=== PATIENT | female | born 1955 | race Two or more races ===

== ENCOUNTER 2017-06-07 16:14 | Inpatient (IN) | payer MEDICAID ==
[~2017-06-07] VITALS: Ht 162.6 cm; Wt 95.7 kg
--- NOTE | 2017-06-07 16:35 | Emergency Room Report ---
History of Present Illness General Chief Complaint: Chest Pain Source: Patient Present Illness [facility] Patient present with complaints of midsternal chest pain Onset approximately 2 hours prior to arrival Patient takes medications for diabetes, hypertension, and anticoagulations for atrial fibrillation Pain is 5/10 heavy midsternal Patient has not really any alleviating or aggravating pathology denies any vomiting or diarrhea denies any fevers or chills Allergies: Coded Allergies: No Known Allergies (Unverified , 06/07/17) Patient History Past Medical History: see triage record Pertinent Family History: none Now: No Reviewed Nursing Documentation: PMH: Agreed, PSxH: Agreed Nursing Documentation-PMH Hx Cardiac Problems: Yes Hx Hypertension: Yes Hx Pacemaker: No Hx Asthma: No Hx COPD: No Hx Diabetes: Yes Hx Cancer: No Hx Gastrointestinal Problems: No Hx Dialysis: No History Of Psychiatric Problem: No Hx Neurological Problems: No Hx Seizures: No Review of Systems All Other Systems: negative except mentioned in HPI Physical Exam Vital Signs Date Time Temp Pulse Resp B/P Pulse Ox O2 Delivery O2 Flow Rate FiO2 06/07/17 16:05 98.1 78 16 116/68 98 Room Air Sp02 EP Interpretation: reviewed, normal General Appearance: mild distress - Patient appears weak Head: normocephalic, atraumatic Eyes: bilateral eye EOMI, bilateral eye PERRL ENT: hearing grossly normal, normal pharynx, TMs + canals normal, uvula midline Neck: full range of motion, supple, no meningismus, no bony tend Respiratory: lungs clear, normal breath sounds, no rhonchi, no respiratory distress, no retraction, no accessory muscle use Cardiovascular #1: normal peripheral pulses, regular rate, rhythm, no edema, no gallop, no JVD, no murmur Gastrointestinal: normal bowel sounds, non tender, soft, no mass, no organomegaly, non-distended, no guarding, no hernia, no pulsatile mass, no rebound Genitourinary: no CVA tenderness Musculoskeletal: normal inspection Neurologic: oriented x3, responsive, waterside worker III-XII nml as tested, motor strength/ tone normal, sensory intact Psychiatric: mood/affect normal Skin: normal color, no rash, warm/dry, palpation normal Lymphatic: normal inspection, no adenopathy Medical Decision Making Diagnostic Impression: Primary Impression: ACS (acute coronary syndrome) ER Course Patient is a fairly complex patient with multiple differential to consideration including but not limited to cardiac cardiopulmonary and vascular emergencies Given the patient's history exam and presentation at this time no signs of any acute ST elevation MO However there is concern regarding ACS patient was given aspirin and nitroglycerin in route Require further medication here and admitted for further inpatient care Labs Test 06/07/17 16:20 White Blood Count 9.4 K/UL (4.8-10.8) Red Blood Count 4.30 M/UL (4.20-5.40) Hemoglobin 14.6 G/DL (12.0-16.0) Hematocrit 39.8 % (37.0-47.0) Mean Corpuscular Volume 93 FL (80-99) Mean Corpuscular Hemoglobin 34.1 PG (27.0-31.0) Mean Corpuscular Hemoglobin Concent 36.8 G/DL (32.0-36.0) Red Cell Distribution Width 11.3 % (11.6-14.8) Platelet Count 246 K/UL (150-450) Mean Platelet Volume 8.2 FL (6.5-10.1) Neutrophils (%) (Auto) 59.1 % (45.0-75.0) Lymphocytes (%) (Auto) 32.3 % (20.0-45.0) Monocytes (%) (Auto) 6.5 % (1.0-10.0) Eosinophils (%) (Auto) 0.9 % (0.0-3.0) Basophils (%) (Auto) 1.2 % (0.0-2.0) Prothrombin Time 22.4 SEC (9.30-11.50) Prothromb Time International Ratio 2.1 (0.9-1.1) Activated Partial Thromboplast Time 38 SEC (23-33) Sodium Level 144 mEQ/L (135-145) Potassium Level 3.8 mEQ/L (3.4-4.9) Chloride Level 102 mEQ/L (98-107) Carbon Dioxide Level 27 mEQ/L (20-30) Anion Gap 15 (5-15) Blood Urea Nitrogen 13 mg/dL (7-23) Creatinine 0.9 mg/dL (0.5-0.9) Estimat Glomerular Filtration Rate > 60 mL/min (>60) Glucose Level 117 mg/dL (74-106) Calcium Level 9.6 mg/dL (8.6-10.2) Total Bilirubin 0.2 mg/dL (0.0-1.2) Aspartate Amino Transf (AST/SGOT) 18 U/L (5-40) Alanine Aminotransferase (ALT/SGPT) 14 U/L (3-33) Alkaline Phosphatase 87 U/L (35-104) Total Creatine Kinase 71 U/L (26-140) Creatine Kinase MB 1.9 ng/mL (< 3.8) Creatine Kinase MB Relative Index 2.6 Troponin I < 0.30 ng/mL (<=0.30) Total Protein 7.4 g/dL (6.6-8.7) Albumin 4.6 g/dL (3.5-5.2) Globulin 2.8 g/dL Albumin/Globulin Ratio 1.6 (1.0-2.7) EKG Diagnostic Results Rate: normal Rhythm: other - atrial fibrillation ST Segments: no acute changes Rhythm Strip Diag. Results EP Interpretation: yes Rate: 65 Rhythm: no PVC's, no ectopy, other - afib Chest X-Ray Diagnostic Results Chest X-Ray Diagnostic Results : Chest X-Ray Ordered: Yes # of Views/Limited/Complete: 1 View Indication: Chest Pain EP Interpretation: Yes Interpretation: no consolidation, no effusion, no pneumothorax Impression: No acute disease Interpreting ER Provider: DO Esteban Gutierrez Vital Signs Date Time Temp Pulse Resp B/P Pulse Ox O2 Delivery O2 Flow Rate FiO2 06/07/17 16:05 98.1 78 16 116/68 98 Room Air Status: improved Disposition: ADMITTED INPATIENT Condition: Serious UZMA MALONE D.O. Jun 07, 2017 16:35
[2017-06-07] MEDS ORDERED: Morphine Sulfate 4mg/ml Inj IVP ONE (16:45)
[2017-06-07 16:47] LABS: BASOPHILS % (AUTO) 1.2 % (0.0-2.0); EOSINOPHILS % (AUTO) 0.9 % (0.0-3.0); LYMPHOCYTES % (AUTO) 32.3 % (20.0-45.0); MEAN CORPUSCULAR HEMOGLOBIN 34.1 PG (27.0-31.0); MEAN CORPUSCULAR HGB CONC 36.8 G/DL (32.0-36.0); MEAN CORPUSCULAR VOLUME 93 FL (80-99); MEAN PLATELET VOLUME 8.2 FL (6.5-10.1); MONOCYTES % (AUTO) 6.5 % (1.0-10.0); NEUTROPHILS % (AUTO) 59.1 % (45.0-75.0); PLATELET COUNT 246 K/UL (150-450); RED CELL DISTRIBUTION WIDTH 11.3 % (11.6-14.8); WHITE BLOOD COUNT 9.4 K/UL (4.8-10.8)
[2017-06-07 17:00] VITALS: BP 105/63
[2017-06-07 17:10] LABS: TROPONIN I < 0.30 ng/mL (<=0.30)
[2017-06-07 17:22] LABS: ALANINE AMINOTRANSFERASE 14 U/L (3-33); ALBUMIN/GLOBULIN RATIO 1.6 (1.0-2.7); ANION GAP 15 (5-15); ASPARTATE AMINO TRANSFERASE 18 U/L (5-40); CALCIUM 9.6 mg/dL (8.6-10.2); CARBON DIOXIDE 27 mEQ/L (20-30); CHLORIDE 102 mEQ/L (98-107); CREATININE 0.9 mg/dL (0.5-0.9); GLOMERULAR FILTRATION RATE > 60 mL/min (>60); HEMOLYSIS 3; POTASSIUM 3.8 mEQ/L (3.4-4.9); SODIUM 144 mEQ/L (135-145); TOTAL PROTEIN 7.4 g/dL (6.6-8.7)
[2017-06-07 17:26] LABS: INR 2.1 (0.9-1.1); PROTHROMBIN TIME 22.4 SEC (9.30-11.50)
[2017-06-07 17:34] LABS: CKMB 1.9 ng/mL (< 3.8)
[2017-06-07 18:32] VITALS: BP 124/69
[2017-06-07] MEDS ORDERED: METFORMIN HCL1000 M1 ORAL (18:38)
[2017-06-07] MEDS ORDERED: LASIX20 M1 ORAL (18:38)
[2017-06-07] MEDS ORDERED: BENAZEPRIL HCL10 MG ORAL (18:38)
[2017-06-07] MEDS ORDERED: COUMADIN5 MG ORAL (18:38)
[2017-06-07] MEDS ORDERED: FAMOTIDINE20 MG ORAL (18:38)
[2017-06-07] MEDS ORDERED: METOPROLOL SUCC25 MG ORAL (18:38)
[2017-06-07 20:20] VITALS: BP 108/75
--- NOTE | 2017-06-07 20:36 | Cardiology Progress Note ---
Assessment/Plan Assessment/Plan The patient is seen and examined, full consult note will be dictated. Objective Last 24 Hour Vital Signs Date Time Temp Pulse Resp B/P Pulse Ox O2 Delivery O2 Flow Rate FiO2 06/07/17 20:20 97.0 60 18 108/75 98 Room Air 06/07/17 20:08 98.1 54 12 124/69 98 Room Air 06/07/17 18:32 98.1 54 12 124/69 98 Room Air 06/07/17 17:59 98.1 06/07/17 17:00 98.1 57 12 105/63 98 Room Air 06/07/17 17:00 57 12 Room Air 06/07/17 16:05 98.1 78 16 116/68 98 Room Air Laboratory Tests Test 06/07/17 16:20 White Blood Count 9.4 K/UL (4.8-10.8) Red Blood Count 4.30 M/UL (4.20-5.40) Hemoglobin 14.6 G/DL (12.0-16.0) Hematocrit 39.8 % (37.0-47.0) Mean Corpuscular Volume 93 FL (80-99) Mean Corpuscular Hemoglobin 34.1 PG (27.0-31.0) H Mean Corpuscular Hemoglobin Concent 36.8 G/DL (32.0-36.0) H Red Cell Distribution Width 11.3 % (11.6-14.8) L Platelet Count 246 K/UL (150-450) Mean Platelet Volume 8.2 FL (6.5-10.1) Neutrophils (%) (Auto) 59.1 % (45.0-75.0) Lymphocytes (%) (Auto) 32.3 % (20.0-45.0) Monocytes (%) (Auto) 6.5 % (1.0-10.0) Eosinophils (%) (Auto) 0.9 % (0.0-3.0) Basophils (%) (Auto) 1.2 % (0.0-2.0) Prothrombin Time 22.4 SEC (9.30-11.50) H Prothromb Time International Ratio 2.1 (0.9-1.1) H Activated Partial Thromboplast Time 38 SEC (23-33) H Sodium Level 144 mEQ/L (135-145) Potassium Level 3.8 mEQ/L (3.4-4.9) Chloride Level 102 mEQ/L (98-107) Carbon Dioxide Level 27 mEQ/L (20-30) Anion Gap 15 (5-15) Blood Urea Nitrogen 13 mg/dL (7-23) Creatinine 0.9 mg/dL (0.5-0.9) Estimat Glomerular Filtration Rate > 60 mL/min (>60) Glucose Level 117 mg/dL (74-106) H Calcium Level 9.6 mg/dL (8.6-10.2) Total Bilirubin 0.2 mg/dL (0.0-1.2) Aspartate Amino Transf (AST/SGOT) 18 U/L (5-40) Alanine Aminotransferase (ALT/SGPT) 14 U/L (3-33) Alkaline Phosphatase 87 U/L (35-104) Total Creatine Kinase 71 U/L (26-140) Creatine Kinase MB 1.9 ng/mL (< 3.8) Creatine Kinase MB Relative Index 2.6 Troponin I < 0.30 ng/mL (<=0.30) Total Protein 7.4 g/dL (6.6-8.7) Albumin 4.6 g/dL (3.5-5.2) Globulin 2.8 g/dL Albumin/Globulin Ratio 1.6 (1.0-2.7) EVELYN ANAND Jun 07, 2017 20:36
[2017-06-07] MEDS ORDERED: Warfarin Sodium 5mg ORAL ONE (23:00)
[2017-06-08] VITALS: BP 96/65
[2017-06-08 04:00] VITALS: BP 96/58
[2017-06-08] MEDS: NovoLOG Insulin Flexpen SUBQ SCH ×4 (06:30→21:00)
[2017-06-08 06:59] LABS: INR 2.2 (0.9-1.1); PROTHROMBIN TIME 23.7 SEC (9.30-11.50)
[2017-06-08 07:35] LABS: CHOLESTEROL/HDL RATIO 5.1 (3.3-4.4)
[2017-06-08 07:37] LABS: TROPONIN I < 0.30 ng/mL (<=0.30)
[2017-06-08 08:10] VITALS: BP 113/71
[2017-06-08] MEDS: Benazepril 10mg tab ORAL SCH (08:41)
[2017-06-08] MEDS: metFORMIN 500mg tab ORAL SCH ×2 (08:41→17:25)
--- NOTE | 2017-06-08 09:24 | Diagnostic Imaging Report ---
Indications: Chest pain Technique: Portable AP chest Findings: Comparison: None Suboptimal inspiration limits evaluation. Linear density left lung base. Visualized portions of right lung, bilateral pleural surfaces clear. Cardiac silhouette partially obscured, likely normal in size. Pulmonary vasculature within normal limits. Thoracic aorta calcified. Thoracic vertebral osteophytes. Focal contour deformity right clavicle. IMPRESSION: Left lung base subsegmental atelectasis versus scarring No other evidence of acute cardiopulmonary disease, limited as described. Basal abnormalities may be missed. Upright PA and lateral chest radiographs with better inspiratory effort and optimal technique recommended for more complete evaluation. Aorta sclerosis Degenerative spondylosis Suggestion of old, healed fracture right clavicle
--- NOTE | 2017-06-08 10:00 | Consultation ---
Consult Note Consult Note asked to eval for management of BP and electrolytes Chief Complaint: Chest Pain Patient present with complaints of midsternal chest pain Onset approximately 2 hours prior to arrival Patient takes medications for diabetes, hypertension, and anticoagulations for atrial fibrillation Pain is 5/10 heavy midsternal Patient has not really any alleviating or aggravating pathology denies any vomiting or diarrhea denies any fevers or chills Hx Cardiac Problems: Yes Hx Hypertension: Yes Hx Diabetes: Yes Assessment/Plan Normal renal parameters- UA pending At [facility] on coumadin BP controlled DM Per cardiology Monitor renal parameters adjust BP CARLA Waldron Jun 08, 2017 10:00
[2017-06-08 11:39] VITALS: BP 125/72
[2017-06-08 12:44] LABS: APPEARANCE,URINE CLEAR; KETONES,URINE NEGATIVE (NEGATIVE); LEUKOCYTE ESTERASE ,URINE NEGATIVE (NEGATIVE); NITRITE,URINE NEGATIVE (NEGATIVE); PH,URINE 6 (4.5-8.0); PROTEIN,URINE NEGATIVE (NEGATIVE); UROBILINOGEN,URINE NORMAL MG/DL (0.0-1.0)
[2017-06-08 12:51] LABS: BACTERIA,URINE OCCASIONAL /HPF; RBC,URINE 0-2 /HPF (0 - 2); SQUAMOUS EPITHELIAL CELL,UR OCCASIONAL /LPF (NONE/OCC); WBC,URINE 0-2 /HPF (0 - 2)
--- NOTE | 2017-06-08 12:55 | Neurology Progress Note ---
Objective Physical Exam Last Vital Signs Date Time Temp Pulse Resp B/P (MAP) Pulse Ox O2 Delivery O2 Flow Rate FiO2 06/08/17 11:39 97.2 77 19 125/72 96 Room Air Laboratory Tests Test 06/07/17 16:20 06/08/17 06:10 06/08/17 12:13 White Blood Count 9.4 K/UL (4.8-10.8) Red Blood Count 4.30 M/UL (4.20-5.40) Hemoglobin 14.6 G/DL (12.0-16.0) Hematocrit 39.8 % (37.0-47.0) Mean Corpuscular Volume 93 FL (80-99) Mean Corpuscular Hemoglobin 34.1 PG (27.0-31.0) H Mean Corpuscular Hemoglobin Concent 36.8 G/DL (32.0-36.0) H Red Cell Distribution Width 11.3 % (11.6-14.8) L Platelet Count 246 K/UL (150-450) Mean Platelet Volume 8.2 FL (6.5-10.1) Neutrophils (%) (Auto) 59.1 % (45.0-75.0) Lymphocytes (%) (Auto) 32.3 % (20.0-45.0) Monocytes (%) (Auto) 6.5 % (1.0-10.0) Eosinophils (%) (Auto) 0.9 % (0.0-3.0) Basophils (%) (Auto) 1.2 % (0.0-2.0) Prothrombin Time 22.4 SEC (9.30-11.50) H 23.7 SEC (9.30-11.50) H Prothromb Time International Ratio 2.1 (0.9-1.1) H 2.2 (0.9-1.1) H Activated Partial Thromboplast Time 38 SEC (23-33) H Sodium Level 144 mEQ/L (135-145) Potassium Level 3.8 mEQ/L (3.4-4.9) Chloride Level 102 mEQ/L (98-107) Carbon Dioxide Level 27 mEQ/L (20-30) Anion Gap 15 (5-15) Blood Urea Nitrogen 13 mg/dL (7-23) Creatinine 0.9 mg/dL (0.5-0.9) Estimat Glomerular Filtration Rate > 60 mL/min (>60) Glucose Level 117 mg/dL (74-106) H Calcium Level 9.6 mg/dL (8.6-10.2) Total Bilirubin 0.2 mg/dL (0.0-1.2) Aspartate Amino Transf (AST/SGOT) 18 U/L (5-40) Alanine Aminotransferase (ALT/SGPT) 14 U/L (3-33) Alkaline Phosphatase 87 U/L (35-104) Total Creatine Kinase 71 U/L (26-140) Creatine Kinase MB 1.9 ng/mL (< 3.8) Creatine Kinase MB Relative Index 2.6 Troponin I < 0.30 ng/mL (<=0.30) < 0.30 ng/mL (<=0.30) Total Protein 7.4 g/dL (6.6-8.7) Albumin 4.6 g/dL (3.5-5.2) Globulin 2.8 g/dL Albumin/Globulin Ratio 1.6 (1.0-2.7) Triglycerides Level 174 mg/dL (< 150) H Cholesterol Level 194 mg/dL (< 200) LDL Cholesterol 121 mg/dL (60-99) H HDL Cholesterol 38 mg/dL (> 60) Cholesterol/HDL Ratio 5.1 (3.3-4.4) H Urine Color Pale yellow Urine Appearance Clear Urine pH 6 (4.5-8.0) Urine Specific [place] 1.015 (1.005-1.035) Urine Protein Negative (NEGATIVE) Urine Glucose (UA) Negative (NEGATIVE) Urine Ketones Negative (NEGATIVE) Urine Occult Blood Negative (NEGATIVE) Urine Nitrite Negative (NEGATIVE) Urine Bilirubin Negative (NEGATIVE) Urine Urobilinogen Normal MG/DL (0.0-1.0) Urine Leukocyte Esterase Negative (NEGATIVE) Urine RBC 0-2 /HPF (0 - 2) Urine WBC 0-2 /HPF (0 - 2) Urine Squamous Epithelial Cells Occasional /LPF Urine Bacteria Occasional /HPF (NONE) Impression/Recommendations Problems: (1) Headache Status: stable Recommendations #[id number] SANDRA VAIL Jun 08, 2017 12:55
[2017-06-08] MEDS ORDERED: Adenosine Inj IVP ONE (14:00)
--- NOTE | 2017-06-08 15:05 | Cardiology Report ---
APPROVED REPORT EXAM: Two-dimensional and M-mode echocardiogram with Doppler and color Doppler. INDICATION Atrial Fibrillation M-Mode DIMENSIONS IVSd1.2 (0.7-1.1cm)Left Atrium (MM)4.3 (1.6-4.0cm) LVDd5.1 (3.5-5.6cm)Aortic Root3.0 (2.0-3.7cm) PWd0.9 (0.7-1.1cm)Aortic Cusp Exc.1.9 (1.5-2.0cm) LVDs3.3 (2.5-4.0cm) PWs1.7 cm Normal left ventricular chamber size, systolic function and wall motion. Left ventricular ejection fraction estimated to be 60-65 %. Mild left ventricular hypertrophy by 2-D. No evidence of pericardial effusion. Left and right atrial sizes at upper limits of normal. Right ventricular chamber size is within normal limits. Mild focal aortic valve sclerosis with adequate cusp excursion. Mildly thickened mitral valve leaflets with normal excursion. Mild mitral annulus and aortic root calcification. Pulmonic valve not well visualized. Normal tricuspid valve structure. IVC measured at 2.1 cm with physiologic collapse. A color flow and spectral Doppler study was performed and revealed: Trace aortic regurgitation. Mild mitral regurgitation. Can not determine left ventricular diastolic function by mitral diastolic velocities due to atrial fibrillation. Mild tricuspid regurgitation. Tricuspid systolic velocities suggests peak right ventricular systolic pressure of 35 mmHg, consistent with borderline mild pulmonary hypertension.
--- NOTE | 2017-06-08 15:26 | Cardiology Report ---
APPROVED REPORT EKG Measurement Heart [id number] Atrial fibrillation Cannot rule out Anterior infarct, age undetermined Abnormal ECG
[2017-06-08 15:34] VITALS: BP 111/75
--- NOTE | 2017-06-08 16:09 | Diagnostic Imaging Report ---
Indications: 62-year-old female inpatient presents with chest pain Technique: The examination was supervised by Dr. Gonsalez. Baseline electrocardiogram was recorded. Adenosine was administered the patient intravenously per usual protocol. Continuous electrocardiography, heart rate, blood pressure monitoring performed. Immediate SPECT imaging of the left ventricular myocardium was performed in multiple planes with the patient in supine position, following intravenous administration of 31 mCi 99 M technetium-sestaMIBI. Cinegraphic images were generated for wall motion analysis. Left ventricular ejection fraction was calculated. Similar imaging was performed at rest immediately prior with intravenous administration of 9.4 mCi 99 M technetium-sestaMIBI. Findings: Comparison: None. Both stress and rest images demonstrate left ventricular myocardial perfusion to be intact. No areas of abnormally decreased or absent perfusion are demonstrated. Cinegraphic images demonstrate no areas of wall motion abnormality. Ejection fraction is estimated at 68%. The patient complained of chest pain at rest which remain unchanged and developed no acute electrocardiographic changes during adenosine infusion. Supervising financial analyst intern's conclusions are that clinical response to pharmacologic stress simulation is nonischemic while electrocardiographic response is likewise nonischemic. IMPRESSION: Negative left ventricular myocardial perfusion scan--no evidence of chemically induced left ventricular myocardial ischemia or prior infarct. This correlates with supervising financial analyst intern's conclusions.
[2017-06-08] MEDS: Warfarin Sodium 5mg ORAL SCH (17:25)
[2017-06-08 20:00] VITALS: BP 121/81
[2017-06-08] MEDS: Tylenol #3 tab (300mg/30mg) ORAL PRN (20:38)
--- NOTE | 2017-06-08 21:58 | Neurology Progress Note ---
Interim History Interim History ROS Limited/Unobtainable: No Complaints: severe GAMEZ and chest pain Events: CT brain no acute changes Objective Physical Exam Last Vital Signs Date Time Temp Pulse Resp B/P (MAP) Pulse Ox O2 Delivery O2 Flow Rate FiO2 06/08/17 20:00 97.2 80 18 121/81 97 Room Air Laboratory Tests Test 06/08/17 06:10 06/08/17 12:13 Prothrombin Time 23.7 SEC (9.30-11.50) H Prothromb Time International Ratio 2.2 (0.9-1.1) H Troponin I < 0.30 ng/mL (<=0.30) Triglycerides Level 174 mg/dL (< 150) H Cholesterol Level 194 mg/dL (< 200) LDL Cholesterol 121 mg/dL (60-99) H HDL Cholesterol 38 mg/dL (> 60) Cholesterol/HDL Ratio 5.1 (3.3-4.4) H Urine Color Pale yellow Urine Appearance Clear Urine pH 6 (4.5-8.0) Urine Specific [place] 1.015 (1.005-1.035) Urine Protein Negative (NEGATIVE) Urine Glucose (UA) Negative (NEGATIVE) Urine Ketones Negative (NEGATIVE) Urine Occult Blood Negative (NEGATIVE) Urine Nitrite Negative (NEGATIVE) Urine Bilirubin Negative (NEGATIVE) Urine Urobilinogen Normal MG/DL (0.0-1.0) Urine Leukocyte Esterase Negative (NEGATIVE) Urine RBC 0-2 /HPF (0 - 2) Urine WBC 0-2 /HPF (0 - 2) Urine Squamous Epithelial Cells Occasional /LPF Urine Bacteria Occasional /HPF (NONE) General: well developed, well nourished, no acute distress Head: normocophalic, atraumatic Neck: no rigidity Neurologic Exam Mental Status: awake, alert, oriented x4, normal cognition, other - depressed Speech: normal speech, no dysarthia Language: normal language, no aphasia Cranial Nerve II: fundus normal, visual marmolejo, no papilledema Cranial Nerves III, IV, : PERRLA, EOMI, pupils Cranial Nerve V: normal facial sensations, temporales function normal, masseters function normal, pterygoids function normal Cranial Nerve VII: no facial asymmetry, normal facial expressions Cranial Nerve VIII: normal hearing, no nystagmus Cranial Nerve IX: normal palate elevation, gag response Cranial Nerve X: no voice hoarseness Cranial Nerve XI: SCM symmetric, trapezii function normal Cranial Nerve XII: tongue midline, no tongue atrophy/fasciculations Motor System: normal muscle tone, strength 5/5, no involuntary movement, no muscle wasting Sensory: normal pinprick, normal light touch, normal position sense, normal graphesthesia Coordination: normal finger to nose bilaterally, normal heel to baez bilaterally, negative Romberg test Deep Tendon Reflexes: 0 bicep (L), 0 bicep (R), 0 tricep (L), 0 tricep (R), 0 brachioradialis (L), 0 brachioradialis (R), 0 knee (L), 0 knee (R), 0 ankle (L) , 0 ankle (R) Reflexes: mute plantar (L), mute plantar (R) Stance: normal, other Gait: stable, normal regular, heel + toe gait, other Impression/Recommendations Problems: (1) cephalgia muscle contraction type (2) ACS (acute coronary syndrome) Status: stable Recommendations #[id number] farhad d/w SANDRA Low Jun 08, 2017 21:58
[2017-06-08] MEDS ORDERED: Norco 5mg/325mg tab ORAL PRN (22:00)
--- NOTE | 2017-06-08 23:51 | Cardiology Progress Note ---
Assessment/Plan Assessment/Plan 1. Atypical chest pain, non-ischemic stress test, continue primary CAD preventive measures. 2. Atrial fibrillation with controlled ventricular response, resume metoprolol, continue warfarin, keep INR at 2-3 3. HTN, continue ACEI and diuretics. Subjective Subjective Atrial fibrillation at 65. s/p stress test this afternoon. Objective Last 24 Hour Vital Signs Date Time Temp Pulse Resp B/P (MAP) Pulse Ox O2 Delivery O2 Flow Rate FiO2 06/08/17 20:00 97.2 80 18 121/81 97 Room Air 06/08/17 20:00 81 06/08/17 16:00 80 06/08/17 15:34 97.5 88 19 111/75 97 Room Air 06/08/17 12:00 78 06/08/17 11:39 97.2 77 19 125/72 96 Room Air 06/08/17 08:10 97.0 68 19 113/71 97 Room Air 06/08/17 08:00 71 06/08/17 04:00 47 06/08/17 04:00 97.0 69 18 96/58 96 Room Air 06/08/17 00:00 97.0 57 18 96/65 98 Room Air 06/08/17 00:00 50 Intake and Output 06/08/17 06/09/17 19:00 07:00 Intake Total 480 ml Balance 480 ml Intake Oral 480 ml # Voids 3 2D Echo: LVEF 65%, Mild MR, RVSP 35 mmHg, Mild WI, cannot assess diastolic fxn Laboratory Tests Test 06/08/17 06:10 06/08/17 12:13 Prothrombin Time 23.7 SEC (9.30-11.50) H Prothromb Time International Ratio 2.2 (0.9-1.1) H Troponin I < 0.30 ng/mL (<=0.30) Triglycerides Level 174 mg/dL (< 150) H Cholesterol Level 194 mg/dL (< 200) LDL Cholesterol 121 mg/dL (60-99) H HDL Cholesterol 38 mg/dL (> 60) Cholesterol/HDL Ratio 5.1 (3.3-4.4) H Urine Color Pale yellow Urine Appearance Clear Urine pH 6 (4.5-8.0) Urine Specific [place] 1.015 (1.005-1.035) Urine Protein Negative (NEGATIVE) Urine Glucose (UA) Negative (NEGATIVE) Urine Ketones Negative (NEGATIVE) Urine Occult Blood Negative (NEGATIVE) Urine Nitrite Negative (NEGATIVE) Urine Bilirubin Negative (NEGATIVE) Urine Urobilinogen Normal MG/DL (0.0-1.0) Urine Leukocyte Esterase Negative (NEGATIVE) Urine RBC 0-2 /HPF (0 - 2) Urine WBC 0-2 /HPF (0 - 2) Urine Squamous Epithelial Cells Occasional /LPF Urine Bacteria Occasional /HPF (NONE) Objective HEENT normocephalic, atraumatic, EOMI, bilateral eye PERRL Neck: full range of motion, supple, negative JVD. Respiratory: lungs clear, normal breath sounds, no rhonchi, no respiratory distress, no retraction, no accessory muscle use Cardiovascular: normal peripheral pulses, Irregularly irregular rate, rhythm, no gallop, rub or murmur Gastrointestinal: normal bowel sounds, non tender, soft, no mass, no organomegaly, non-distended, no guarding, no hernia, no pulsatile mass, no rebound Musculoskeletal: no edema, clubbing or cyanosis EVELYN ANAND Jun 08, 2017 23:51
[2017-06-09] VITALS: BP 116/69
--- NOTE | 2017-06-09 00:16 | Consultation ---
DATE OF CONSULTATION: 06/08/2017 NEUROLOGICAL CONSULTATION CONSULTING PHYSICIAN: Brad Guevara M.D. REQUESTING PHYSICIAN: Aaron Burris M.D. HISTORY OF PRESENT ILLNESS: The patient is a [id number] seen in neurological consultation to evaluate severe headache. According to the patient, yesterday, she developed a severe midsternal chest pain, sent into emergency room. Vital signs were stable. Blood pressure is 116/68 and temperature 98.1 degrees. Apparently, en route to emergency, she was given aspirin and nitroglycerin. The patient developed quite severe bifrontal headache. EKG revealed presence of atrial fibrillation. There was no PVC. No ectopies noted. Chest x-ray, no acute disease. Laboratory work included a normal CBC study with signs of coagulopathy, INR of 2.1 and PT 22.4. Blood pressure remained within normal limits. Heart rate with bradycardia at 54. Since admission, the patient was maintained on IV fluids, Lotensin, furosemide, morphine p.r.n., metformin, Zofran, Zantac, and warfarin. PAST MEDICAL HISTORY: The patient has a history of hypertension, diabetes type 2, and chronic atrial fibrillation. She is status post brain biopsy. MEDICATIONS: Treatment at home included benazepril, , furosemide, metformin, metoprolol, and Coumadin. ALLERGIES: None reported. SOCIAL HISTORY: Lives at home with her family, and children. No alcohol. No drug abuse. Nonsmoker. FAMILY HISTORY: Noncontributory. REVIEW OF SYMPTOMS: At this time, chest pain resolved, but she remains with a bifrontal headache, less severe than yesterday. Denies unilateral weakness, numbness, or tingling. No respiratory difficulties. The patient indicated that in the past, she had mild headaches, but never as severe as on admission. PHYSICAL EXAMINATION: GENERAL: A well-developed, well-nourished, pleasant female, not in acute distress. VITAL SIGNS: Now stable. Blood pressure 125/72 and temperature 97.2 degrees. HEENT: Head is normocephalic. No evidence of injuries. Eyes, ears, and throat are clear. NECK: Supple. No meningeal signs. MUSCULOSKELETAL: Unremarkable. There is no deformities. Peripheral pulses 1+ symmetric. MENTAL STATUS: Alert and oriented x3 with no evidence of aphasia or apraxia. Cognition is normal. CRANIAL NERVE II: Pupils both responding to light and accommodation. Extraocular movement intact. No nystagmus. CRANIAL NERVE V: Normal corneal responses. CRANIAL NERVE VII: No facial asymmetry. CRANIAL NERVE VIII: Normal hearing. CRANIAL NERVES IX THROUGH XII: Within normal limits. MOTOR EXAMINATION: Normal muscle tone. Strength 5/5 in all extremities. No involuntary movement. Deep tendon reflexes 1+ symmetric with downgoing toes on both sides. SENSORY EXAM: Normal to pinprick and light touch. GAIT: Not tested, but reported stable. IMPRESSION: 1. New onset of severe headache. Rule out nitroglycerin related cephalalgia, rule out sentinel bleed in the setting of anticoagulation. 2. Hypertension. 3. Coronary artery disease, chest pain. 4. Diabetes type 2. 5. Paroxysmal atrial fibrillation, now on anticoagulation. RECOMMENDATION: 1. Get a CT of the brain without contrast. 2. Check carotid duplex. 3. If CAT scan is negative, proceed with anticoagulation. 4. Recheck lipid panel. Thank you for allowing me to see this interesting patient in neurological consultation. Brad Guevara M.D. DR: JANUARY JOB#: [id number] CC:
[2017-06-09 04:00] VITALS: BP 118/85
--- NOTE | 2017-06-09 04:45 | History and Physical Report ---
DATE OF ADMISSION: 06/07/2017 HISTORY OF PRESENT ILLNESS: The patient was admitted for chest pain for three days and associated with nausea. The patient is also fatigued, very tired and weak. Denies radiation. Denies shortness of breath. Denies palpitation. Denies heartburn. Denies any headache or vision changes. No cough. The patient is on obese side. The patient also has history of atrial fibrillation, was admitted to rule out ACS. PAST MEDICAL HISTORY: Hypertension, obesity, GERD, NIDDM, atrial fibrillation, and hyperlipidemia as well. PAST SURGICAL HISTORY: Tubal ligation. ALLERGIES: No known allergies. MEDICATIONS: Benazepril, famotidine, Lasix, metformin, metoprolol, and warfarin. FAMILY HISTORY: History of diabetes and hypertension. SOCIAL HISTORY: Denies history of smoking, alcohol, or illicit drugs. REVIEW OF SYSTEMS: HEENT: Headache. Respiratory: Denies shortness of breath. Denies cough. Cardiovascular: Report chest pain for three days and no radiation, no associated palpitation or diaphoresis. Gastrointestinal: Does have nausea, but no vomiting. Nausea has only been going on for three days. No abdominal pain. No constipation. Extremities: No pain in the lower extremities. Central Nervous System: Reports generalized fatigue and weakness. No headache. No diplopia. No change in vision or speech pattern. PHYSICAL EXAMINATION: VITAL SIGNS: Temperature is 97 degrees, pulse 60, and blood pressure 108/75. HEENT: PERRLA. NECK: Supple. No lymphadenopathy. CHEST: Clear to auscultation. GASTROINTESTINAL: Soft, nontender, and nondistended. No organomegaly. EXTREMITIES: A 1+ edema. Reflexes on both sides are equal in four extremities. NEUROLOGIC: Cranial nerves II through XII are intact. LABORATORY DATA: No significant EKG changes. Troponins negative. WBC of 9.4, hemoglobin 14.6, and platelets 246,000. Sodium 144, potassium 3.8, BUN of 30, creatinine 0.9, and glucose of 170. ASSESSMENT AND PLAN: Chest pain, rule out acute coronary syndrome. The patient is also very fatigued, weak, and tired and the patient also has borderline potassium and treatment and to rule out acute coronary syndrome. The patient does have risk factors of hypertension, hyperlipidemia, and diabetes as well as age group. So, the patient is in a moderate to high risk for acute coronary syndrome. Aaron Burris M.D. DR: JOHNNY JOB#: [id number] CC:
[2017-06-09 07:01] LABS: INR 2.5 (0.9-1.1); PROTHROMBIN TIME 26.2 SEC (9.30-11.50)
[2017-06-09 07:12] LABS: BASOPHILS % (AUTO) 1.1 % (0.0-2.0); EOSINOPHILS % (AUTO) 0.7 % (0.0-3.0); LYMPHOCYTES % (AUTO) 34.9 % (20.0-45.0); MEAN CORPUSCULAR HEMOGLOBIN 32.2 PG (27.0-31.0); MEAN CORPUSCULAR HGB CONC 33.8 G/DL (32.0-36.0); MEAN CORPUSCULAR VOLUME 95 FL (80-99); MEAN PLATELET VOLUME 8.6 FL (6.5-10.1); MONOCYTES % (AUTO) 6.3 % (1.0-10.0); NEUTROPHILS % (AUTO) 56.8 % (45.0-75.0); PLATELET COUNT 225 K/UL (150-450); RED BLOOD COUNT 4.25 M/UL (4.20-5.40); RED CELL DISTRIBUTION WIDTH 11.1 % (11.6-14.8); WHITE BLOOD COUNT 7.1 K/UL (4.8-10.8)
[2017-06-09 07:18] LABS: ALBUMIN/GLOBULIN RATIO 1.3 (1.0-2.7); CRP QUANT 0.9 mg/dL (< 0.5); GLOMERULAR FILTRATION RATE 56.2 mL/min (>60); MAGNESIUM 1.7 mg/dL (1.7-2.5); PHOSPHORUS 4.5 mg/dL (2.5-4.8); POTASSIUM 4.2 mEQ/L (3.4-4.9); TOTAL PROTEIN 6.9 g/dL (6.6-8.7); URIC ACID 7.9 mg/dL (3.0-7.5)
[2017-06-09 07:31] LABS: THYROID STIMULATING HORMONE 1.17 uIU/mL (0.300-4.500)
[2017-06-09 08:00] VITALS: BP 134/71
[2017-06-09] MEDS: metFORMIN 500mg tab ORAL SCH ×2 (08:14→17:16)
[2017-06-09] MEDS: Benazepril 10mg tab ORAL SCH (08:15)
--- NOTE | 2017-06-09 10:24 | Diagnostic Imaging Report ---
Indication: Altered mental status Technique: Contiguous 5 mm thick transaxial imaging of the head obtained in a Siemens Sensation [address] scanner. Soft tissue and bone windows generated. Total Dose length Product (DLP): [address] Dose Index Volume (CTDIvol): 70.38, 0.15 mGy Comparison: none Findings: The size and configuration of the cortical sulci, basal cisterns, and ventricles are within normal limits for age. There is no mass effect, midline shift, or edema identified. There is no evidence of acute hemorrhage or abnormal intra-axial or extra-axial fluid collections. The bones and soft tissues are unremarkable. Impression: No mass effect, edema or acute bleed. The CT scanner at [facility] is accredited by the [employer] and the scans are performed using dose optimization techniques as appropriate to a performed exam including Automatic Exposure control.
--- NOTE | 2017-06-09 12:18 | General Progress Note ---
Assessment/Plan Status: stable Assessment/Plan Normal renal parameters- UA Neg At fib on coumadin BP controlled DM Per cardiology Monitor renal parameters adjust BP meds Subjective ROS Limited/Unobtainable: No Allergies: Coded Allergies: No Known Allergies (Unverified , 06/07/17) Objective Last 24 Hour Vital Signs Date Time Temp Pulse Resp B/P (MAP) Pulse Ox O2 Delivery O2 Flow Rate FiO2 06/09/17 08:15 118/85 06/09/17 08:00 93 06/09/17 08:00 96.6 90 19 134/71 98 Room Air 06/09/17 04:00 97.5 86 20 118/85 98 Room Air 06/09/17 04:00 81 06/09/17 00:00 97.2 82 18 116/69 97 Room Air 06/09/17 00:00 88 06/08/17 20:00 97.2 80 18 121/81 97 Room Air 06/08/17 20:00 81 06/08/17 16:00 80 06/08/17 15:34 97.5 88 19 111/75 97 Room Air Laboratory Tests 06/09/17 04:45: White Blood Count 7.1, Red Blood Count 4.25, Hemoglobin 13.7, Hematocrit 40.4, Mean Corpuscular Volume 95, Mean Corpuscular Hemoglobin 32.2H, Mean Corpuscular Hemoglobin Concent 33.8, Red Cell Distribution Width 11.1L, Platelet Count 225, Mean Platelet Volume 8.6, Neutrophils (%) (Auto) 56.8, Lymphocytes (%) (Auto) 34.9, Monocytes (%) (Auto) 6.3, Eosinophils (%) (Auto) 0.7, Basophils (%) (Auto ) 1.1, Prothrombin Time 26.2H, Prothromb Time International Ratio 2.5H, Sodium Level 141, Potassium Level 4.2, Chloride Level 100, Carbon Dioxide Level 31H, Anion Gap 10, Blood Urea Nitrogen 14, Creatinine 1.0H, Estimat Glomerular Filtration Rate 56.2, Glucose Level 126H, Uric Acid 7.9H, Calcium Level 9.0, Phosphorus Level 4.5, Magnesium Level 1.7, Total Bilirubin 0.3, Aspartate Amino Transf (AST/SGOT) 17, Alanine Aminotransferase (ALT/SGPT) 13, Alkaline Phosphatase 85, C-Reactive Protein, Quantitative 0.9H, Pro-B-Type Natriuretic Peptide 659H, Total Protein 6.9, Albumin 4.0, Globulin 2.9, Albumin/Globulin Ratio 1.3, Thyroid Stimulating Hormone (TSH) 1.170 Height (Feet): 5 Height (Inches): 4.00 Weight (Pounds): 211 General Appearance: no apparent distress Objective PE not changed CARLA ROSA Jun 09, 2017 12:18
[2017-06-09 12:29] VITALS: BP 121/83
--- NOTE | 2017-06-09 14:01 | Consultation ---
History of Present Illness General Date patient seen: Jun 09, 2017 Chief Complaint: Chest Pain Present Illness Allergies: Coded Allergies: No Known Allergies (Unverified , 06/07/17) Medication History Scheduled Benazepril Hcl* (Benazepril Hcl*), 10 MG ORAL DAILY, (Reported) Famotidine (Famotidine), 20 MG ORAL DAILY, (Reported) Furosemide* (Lasix*), 20 MG ORAL DAILY, (Reported) Metformin Hcl* (Metformin Hcl*), 1,000 MG ORAL BID, (Reported) Metoprolol Succinate* (Metoprolol Succinate*), 25 MG ORAL BID, (Reported) Warfarin Sod* (Coumadin*), 5 MG ORAL DAILY, (Reported) Patient History Healthcare decision maker Resuscitation status Full Code Advanced Directive on File Physical Exam Last 24 Hour Vital Signs Date Time Temp Pulse Resp B/P (MAP) Pulse Ox O2 Delivery O2 Flow Rate FiO2 06/09/17 12:29 97.2 86 18 121/83 98 Nasal Cannula 06/09/17 12:00 83 06/09/17 08:15 118/85 06/09/17 08:00 93 06/09/17 08:00 96.6 90 19 134/71 98 Room Air 06/09/17 04:00 97.5 86 20 118/85 98 Room Air 06/09/17 04:00 81 06/09/17 00:00 97.2 82 18 116/69 97 Room Air 06/09/17 00:00 88 06/08/17 20:00 97.2 80 18 121/81 97 Room Air 06/08/17 20:00 81 06/08/17 16:00 80 06/08/17 15:34 97.5 88 19 111/75 97 Room Air Laboratory Tests Test 06/09/17 04:45 White Blood Count 7.1 K/UL (4.8-10.8) Red Blood Count 4.25 M/UL (4.20-5.40) Hemoglobin 13.7 G/DL (12.0-16.0) Hematocrit 40.4 % (37.0-47.0) Mean Corpuscular Volume 95 FL (80-99) Mean Corpuscular Hemoglobin 32.2 PG (27.0-31.0) H Mean Corpuscular Hemoglobin Concent 33.8 G/DL (32.0-36.0) Red Cell Distribution Width 11.1 % (11.6-14.8) L Platelet Count 225 K/UL (150-450) Mean Platelet Volume 8.6 FL (6.5-10.1) Neutrophils (%) (Auto) 56.8 % (45.0-75.0) Lymphocytes (%) (Auto) 34.9 % (20.0-45.0) Monocytes (%) (Auto) 6.3 % (1.0-10.0) Eosinophils (%) (Auto) 0.7 % (0.0-3.0) Basophils (%) (Auto) 1.1 % (0.0-2.0) Prothrombin Time 26.2 SEC (9.30-11.50) H Prothromb Time International Ratio 2.5 (0.9-1.1) H Sodium Level 141 mEQ/L (135-145) Potassium Level 4.2 mEQ/L (3.4-4.9) Chloride Level 100 mEQ/L (98-107) Carbon Dioxide Level 31 mEQ/L (20-30) H Anion Gap 10 (5-15) Blood Urea Nitrogen 14 mg/dL (7-23) Creatinine 1.0 mg/dL (0.5-0.9) H Estimat Glomerular Filtration Rate 56.2 mL/min (>60) Glucose Level 126 mg/dL (74-106) H Uric Acid 7.9 mg/dL (3.0-7.5) H Calcium Level 9.0 mg/dL (8.6-10.2) Phosphorus Level 4.5 mg/dL (2.5-4.8) Magnesium Level 1.7 mg/dL (1.7-2.5) Total Bilirubin 0.3 mg/dL (0.0-1.2) Aspartate Amino Transf (AST/SGOT) 17 U/L (5-40) Alanine Aminotransferase (ALT/SGPT) 13 U/L (3-33) Alkaline Phosphatase 85 U/L (35-104) C-Reactive Protein, Quantitative 0.9 mg/dL (< 0.5) H Pro-B-Type Natriuretic Peptide 659 pg/mL (0-125) H Total Protein 6.9 g/dL (6.6-8.7) Albumin 4.0 g/dL (3.5-5.2) Globulin 2.9 g/dL Albumin/Globulin Ratio 1.3 (1.0-2.7) Thyroid Stimulating Hormone (TSH) 1.170 uIU/mL (0.300-4.500) Height (Feet): 5 Height (Inches): 4.00 Weight (Pounds): 211 Medications Current Medications Medications (Trade) Dose Ordered Sig/Arnulfo Route PRN Reason Start Time Stop Time Status Last Admin Dose Admin Acetaminophen (Tylenol) 650 mg Q4H PRN ORAL Fever/Headache/Mild Pain 06/08/17 17:00 07/08/17 16:59 Acetaminophen/ Codeine Phosphate (Tylenol #3) 1 tab Q4H PRN ORAL PAIN 4-10 06/08/17 20:15 06/15/17 20:14 06/08/17 20:38 Benazepril HCl (Lotensin) 10 mg DAILY ORAL 06/08/17 09:00 07/08/17 08:59 06/09/17 08:15 Dextrose (Dextrose 50%) 50 ml STAT PRN IV Hypoglycemia 06/08/17 22:15 07/08/17 22:14 Furosemide (Lasix) 20 mg DAILY ORAL 06/08/17 09:00 07/08/17 08:59 06/09/17 08:14 Metformin HCl (Glucophage) 1,000 mg BID ORAL 06/08/17 09:00 07/08/17 08:59 06/09/17 08:14 Ranitidine HCl (Zantac) 150 mg DAILY ORAL 06/08/17 09:00 07/08/17 08:59 06/09/17 08:14 Warfarin Sodium (Coumadin per pharmacy) 1 ea DAILY PRN MISC Per rx protocol 06/07/17 21:45 07/07/17 21:44 Warfarin Sodium (Coumadin) 5 mg COUMADIN ORAL 06/08/17 17:00 06/13/17 16:59 06/08/17 17:25 Assessment/Plan Assessment/Plan (1) Peripheral Neuropathy (2) Headache (3) Muscle spasm Seen dictated TOY LOYD Jun 09, 2017 14:01
[2017-06-09] MEDS ORDERED: Methocarbamol 500mg tab ORAL PRN (14:15)
[2017-06-09] MEDS: Tylenol #3 tab (300mg/30mg) ORAL PRN (14:15)
[2017-06-09 16:00] VITALS: BP 102/66
[2017-06-09] MEDS: Warfarin Sodium 5mg ORAL SCH (17:17)
[2017-06-09 20:00] VITALS: BP 124/73
--- NOTE | 2017-06-09 20:24 | General Progress Note ---
Assessment/Plan Problem List: (1) Headache ICD Codes: R51 - Headache SNOMED: 52535308 (2) ACS (acute coronary syndrome) ICD Codes: I24.9 - Acute ischemic heart disease, unspecified SNOMED: 981823972 (3) cephalgia muscle contraction type Status: progressing Assessment/Plan afebrile vitals stable headache is improving atypical cp Subjective ROS Limited/Unobtainable: Yes Allergies: Coded Allergies: No Known Allergies (Unverified , 06/07/17) Objective Last 24 Hour Vital Signs Date Time Temp Pulse Resp B/P (MAP) Pulse Ox O2 Delivery O2 Flow Rate FiO2 06/09/17 20:00 97.7 97 22 124/73 97 Room Air 06/09/17 16:00 97.7 91 18 102/66 98 Room Air 06/09/17 16:00 89 06/09/17 15:14 97.2 06/09/17 12:29 97.2 86 18 121/83 98 Nasal Cannula 06/09/17 12:00 83 06/09/17 08:15 118/85 06/09/17 08:00 93 06/09/17 08:00 96.6 90 19 134/71 98 Room Air 06/09/17 04:00 97.5 86 20 118/85 98 Room Air 06/09/17 04:00 81 06/09/17 00:00 97.2 82 18 116/69 97 Room Air 06/09/17 00:00 88 Laboratory Tests 06/09/17 04:45: White Blood Count 7.1, Red Blood Count 4.25, Hemoglobin 13.7, Hematocrit 40.4, Mean Corpuscular Volume 95, Mean Corpuscular Hemoglobin 32.2H, Mean Corpuscular Hemoglobin Concent 33.8, Red Cell Distribution Width 11.1L, Platelet Count 225, Mean Platelet Volume 8.6, Neutrophils (%) (Auto) 56.8, Lymphocytes (%) (Auto) 34.9, Monocytes (%) (Auto) 6.3, Eosinophils (%) (Auto) 0.7, Basophils (%) (Auto ) 1.1, Prothrombin Time 26.2H, Prothromb Time International Ratio 2.5H, Sodium Level 141, Potassium Level 4.2, Chloride Level 100, Carbon Dioxide Level 31H, Anion Gap 10, Blood Urea Nitrogen 14, Creatinine 1.0H, Estimat Glomerular Filtration Rate 56.2, Glucose Level 126H, Uric Acid 7.9H, Calcium Level 9.0, Phosphorus Level 4.5, Magnesium Level 1.7, Total Bilirubin 0.3, Aspartate Amino Transf (AST/SGOT) 17, Alanine Aminotransferase (ALT/SGPT) 13, Alkaline Phosphatase 85, C-Reactive Protein, Quantitative 0.9H, Pro-B-Type Natriuretic Peptide 659H, Total Protein 6.9, Albumin 4.0, Globulin 2.9, Albumin/Globulin Ratio 1.3, Thyroid Stimulating Hormone (TSH) 1.170 Height (Feet): 5 Height (Inches): 4.00 Weight (Pounds): 211 Neck: supple Cardiovascular: normal rate Abdomen: non tender Aaron Burris MD Jun 09, 2017 20:24
[2017-06-09] MEDS ORDERED: Metoprolol Succinate XL 25mg tab ORAL SCH (21:00)
[2017-06-09] MEDS ORDERED: Atorvastatin 20mg tab ORAL SCH (21:00)
[2017-06-09] MEDS ORDERED: Aspirin EC 81mg tab ORAL SCH (21:00)
--- NOTE | 2017-06-09 21:08 | Cardiology Progress Note ---
Assessment/Plan Assessment/Plan 1. Atypical chest pain, non-ischemic stress test, continue primary CAD preventive measures. 2. Atrial fibrillation with controlled ventricular response, resume metoprolol, continue warfarin, keep INR at 2-3 3. HTN, continue benazepril, replace lasix with HCTZ. 4. DM, recommend ASA and atorvastatin. Subjective Subjective Atrial fibrillation at 91. Objective Last 24 Hour Vital Signs Date Time Temp Pulse Resp B/P (MAP) Pulse Ox O2 Delivery O2 Flow Rate FiO2 06/09/17 20:00 97.7 97 22 124/73 97 Room Air 06/09/17 16:00 97.7 91 18 102/66 98 Room Air 06/09/17 16:00 89 06/09/17 15:14 97.2 06/09/17 12:29 97.2 86 18 121/83 98 Nasal Cannula 06/09/17 12:00 83 06/09/17 08:15 118/85 06/09/17 08:00 93 06/09/17 08:00 96.6 90 19 134/71 98 Room Air 06/09/17 04:00 97.5 86 20 118/85 98 Room Air 06/09/17 04:00 81 06/09/17 00:00 97.2 82 18 116/69 97 Room Air 06/09/17 00:00 88 2D Echo: LVEF 65%, Mild MR, RVSP 35 mmHg, Mild NM, cannot assess diastolic fxn Laboratory Tests Test 06/09/17 04:45 White Blood Count 7.1 K/UL (4.8-10.8) Red Blood Count 4.25 M/UL (4.20-5.40) Hemoglobin 13.7 G/DL (12.0-16.0) Hematocrit 40.4 % (37.0-47.0) Mean Corpuscular Volume 95 FL (80-99) Mean Corpuscular Hemoglobin 32.2 PG (27.0-31.0) H Mean Corpuscular Hemoglobin Concent 33.8 G/DL (32.0-36.0) Red Cell Distribution Width 11.1 % (11.6-14.8) L Platelet Count 225 K/UL (150-450) Mean Platelet Volume 8.6 FL (6.5-10.1) Neutrophils (%) (Auto) 56.8 % (45.0-75.0) Lymphocytes (%) (Auto) 34.9 % (20.0-45.0) Monocytes (%) (Auto) 6.3 % (1.0-10.0) Eosinophils (%) (Auto) 0.7 % (0.0-3.0) Basophils (%) (Auto) 1.1 % (0.0-2.0) Prothrombin Time 26.2 SEC (9.30-11.50) H Prothromb Time International Ratio 2.5 (0.9-1.1) H Sodium Level 141 mEQ/L (135-145) Potassium Level 4.2 mEQ/L (3.4-4.9) Chloride Level 100 mEQ/L (98-107) Carbon Dioxide Level 31 mEQ/L (20-30) H Anion Gap 10 (5-15) Blood Urea Nitrogen 14 mg/dL (7-23) Creatinine 1.0 mg/dL (0.5-0.9) H Estimat Glomerular Filtration Rate 56.2 mL/min (>60) Glucose Level 126 mg/dL (74-106) H Uric Acid 7.9 mg/dL (3.0-7.5) H Calcium Level 9.0 mg/dL (8.6-10.2) Phosphorus Level 4.5 mg/dL (2.5-4.8) Magnesium Level 1.7 mg/dL (1.7-2.5) Total Bilirubin 0.3 mg/dL (0.0-1.2) Aspartate Amino Transf (AST/SGOT) 17 U/L (5-40) Alanine Aminotransferase (ALT/SGPT) 13 U/L (3-33) Alkaline Phosphatase 85 U/L (35-104) C-Reactive Protein, Quantitative 0.9 mg/dL (< 0.5) H Pro-B-Type Natriuretic Peptide 659 pg/mL (0-125) H Total Protein 6.9 g/dL (6.6-8.7) Albumin 4.0 g/dL (3.5-5.2) Globulin 2.9 g/dL Albumin/Globulin Ratio 1.3 (1.0-2.7) Thyroid Stimulating Hormone (TSH) 1.170 uIU/mL (0.300-4.500) Objective HEENT normocephalic, atraumatic, EOMI, bilateral eye PERRL Neck: full range of motion, supple, negative JVD. Respiratory: lungs clear, normal breath sounds, no rhonchi, no respiratory distress, no retraction, no accessory muscle use Cardiovascular: normal peripheral pulses, Irregularly irregular rate, rhythm, no gallop, rub or murmur Gastrointestinal: normal bowel sounds, non tender, soft, no mass, no organomegaly, non-distended, no guarding, no hernia, no pulsatile mass, no rebound Musculoskeletal: no edema, clubbing or cyanosis EVELYN ANAND Jun 09, 2017 21:08
--- NOTE | 2017-06-10 12:46 | Discharge Summary ---
Discharge Summary Hospital Course Date of Admission Jun 07, 2017 at 17:37 Date of Discharge Jun 09, 2017 at 20:45 Admitting Diagnosis acs, afib HPI Willow Duenas is a 62 year old female who was admitted on Jun 07, 2017 at 17: 37 for Acute Coronary Syndrome, Atrial Fibrilation Hospital Course [id number] Discharge Discharge Disposition Patient left AMA Discharge Diagnoses: Rossana Figueroa NP Jun 10, 2017 12:46
--- NOTE | 2017-06-10 16:45 | Consultation ---
DATE OF CONSULTATION: 06/09/2017 PAIN MANAGEMENT CONSULTATION CONSULTING PHYSICIAN: Ruben Madrid M.D. PHYSICIAN BREAKER MACHINE TENDER: Thiago Bain REFERRING PHYSICIAN: Aaron Burris M.D. CHIEF COMPLAINT: Headache and bilateral lower extremity pain. HISTORY OF PRESENT ILLNESS: The patient is a 62-year-old female, who is being seen on the telemetry floor of [facility] for initial comprehensive pain management consultation. The patient reports that she had been admitted under the care of Dr. Burris, [place] speaking at this time, being interpreted. She explained that she had complaints of chest pain and was admitted under the care of Dr. Burris, again on the telemetry floor. While here in the hospital, started to have headaches, which for severe and has been seen by a neurologist at this time for this issue. The patient also complaining of bilateral lower extremity pain due to neuropathy caused by diabetes, rating the pain an 8/10 at this time, has been started on Tylenol with Codeine No. 3, which she used one dose last night, which reduced her pain to a tolerable level and reports that she would like to continue with medication. The patient as an outpatient is on Neurontin, however, we will not restart it here in the hospital. Due to the patient's pain, we were consulted so that the patient would have adequate pain control while here in the hospital. PAST MEDICAL HISTORY: Hypertension, diabetes, and chronic atrial fibrillation. PAST SURGICAL HISTORY: Brain biopsy. SOCIAL HISTORY: Denies smoking tobacco, drinking alcohol, or drug abuse. ALLERGIES: No known drug allergies. MEDICATIONS: Benazepril, furosemide, metformin, metoprolol, Coumadin, and Neurontin. REVIEW OF SYSTEMS: Denies rash, fever, chills, sweating, dizziness, drowsiness, or change in her weight. No shortness of breath, chest pain, palpitations, or cough. No nausea, vomiting, diarrhea, or blood in the stool or urine. No bowel or bladder incontinence. No dysuria. She is complaining of headaches and bilateral lower extremity pain. PHYSICAL EXAMINATION: GENERAL: Alert, awake, and oriented. VITAL SIGNS: Blood pressure 121/83, heart rate is 86, oxygen saturation 98%, respirations 18, and temperature is 98.2 degrees Fahrenheit. HEENT: PERRLA. NECK: Range of motion is full in all directions. No tenderness to paracervical muscles. No adenopathy. LUNGS: Clear. HEART: Regular. ABDOMEN: Obese. BACK: Range of motion is full on flexion and extension. No tenderness to paraspinal muscles, trapezius, or rhomboid muscles. EXTREMITIES: Upper extremity range of motion is full in all directions. Motor is intact. No cyanosis. No clubbing. No edema. Sensory is intact. Reflexes are not obtainable. No adenopathy. Lower extremity range of motion is full in all directions. Motor is intact. No cyanosis. No clubbing. No edema. Sensory is intact. Reflexes are not obtainable. No adenopathy. ASSESSMENT AND PLAN: This is a 62-year-old female with peripheral neuropathy, headaches, and muscle spasm. The patient will be continued on the Tylenol No. 3 every four hours as needed for severe pain, will be started on Neurontin 300 mg tablet at bedtime and Robaxin 500 mg tablet every eight hours as needed for muscle spasm. The patient was discussed with Dr. Madrid and Dr. moe. We will follow the patient. Thank you very much for the courtesy of this consultation. Ruben Madrid M.D. MYRIAM Bain DR: MARIYA JOB#: [id number] CC:
--- NOTE | 2017-06-10 17:00 | Consultation ---
DATE OF CONSULTATION: 06/07/2017 CARDIOLOGY CONSULTATION REASON FOR CONSULTATION: Management of chest pain. HISTORY OF PRESENT ILLNESS: The patient is a very unfortunate 62-year-old lady, who presents to the hospital with midsternal chest pain that was started about a couple of hours prior to arrival to the hospital. She described it as heaviness and midsternal with no alleviating or aggravating factors. She did not have any associated nausea, vomiting, diaphoresis, or shortness of breath. The patient's cardiac history is significant for a history of atrial fibrillation, for which she takes warfarin for prevention of the cerebrovascular accident. PAST MEDICAL HISTORY: Diabetes mellitus, hypertension, and chronic atrial fibrillation. PAST SURGICAL HISTORY: None. FAMILY HISTORY: No premature coronary artery disease in first-degree relatives. ALLERGIES: No known drug allergies. REVIEW OF SYSTEMS: A 12-system review done essentially negative except what is mentioned in the history of present illness. MEDICATIONS: The list of medications, benazepril 10 mg p.o. daily, famotidine 20 mg p.o. daily, Lasix 20 mg p.o. daily, metformin 1000 mg twice daily, metoprolol 25 mg twice daily, and warfarin 5 mg p.o. daily. PHYSICAL EXAMINATION: VITAL SIGNS: Blood pressure at the time of arrival to the hospital was 116/68, pulse 78, respirations 16, and temperature 98.1 degrees Fahrenheit, and O2 saturation 98% on room air. GENERAL: This is a very pleasant 62-year-old female, in no apparent respiratory distress, alert and oriented x4. HEENT: Atraumatic and normocephalic. Anicteric. Pupils are equal, round, and reactive to light and accommodation. Extraocular muscles intact. NECK: JVP less than 5 cm. No carotid bruits. Carotid upstroke is 2+ bilaterally. CARDIOVASCULAR: There is normal S1 and S2. Irregular rate and rhythm. No murmurs, gallops, or rubs. PMI is at fourth intercostal space in the midclavicular line. LUNGS: Clear to auscultation bilaterally. ABDOMEN: Soft, nontender, and nondistended. No hepatosplenomegaly. Positive bowel sounds. EXTREMITIES: No evidence of edema, clubbing, or cyanosis. LABORATORY AND DIAGNOSTIC FINDINGS: Sodium is 144, potassium 3.8 chloride 102, bicarbonate 27, BUN 13, creatinine 0.9, glucose 117, and calcium 9.6. Troponin I is . INR is 2.1. WBC 9.4, hemoglobin 14.6, hematocrit 39.8, and platelet count 246,000. Chest x-ray shows left lung base subsegmental atelectasis versus scarring. No other evidence of active cardiopulmonary disease. A 12-lead electrocardiogram shows atrial fibrillation with controlled ventricular response at the rate of 68 with low voltage, cannot rule out anterior infarct, age indeterminate. ASSESSMENT AND PLAN: The patient is a very unfortunate 62-year-old female, who was seen in Cardiology consultation at the request of Dr. Burris. 1. Atypical chest pain in view of diabetes mellitus and hypertension. The patient will require pharmacologic agent and myocardial perfusion imaging to rule out obstructive CAD. Further diagnostic and therapeutic recommendation based on results of that. We will also obtain 2D echocardiography for assessment of elevated systolic and diastolic function. 2. Hypertension. We will continue with the patient's current outpatient regimen including benazepril. We will consider switching the Lasix to Dyazide after the stress test. 3. If needed, metoprolol will be resumed after the stress test. 4. History of dyslipidemia, we will obtain a fasting lipid panel. 5. Diabetes mellitus. The patient will require to be on combination of aspirin and statins at the time of discharge. I would like to thank Dr. Burris for allowing me to participate in care of this patient. Darnell Acosta M.D. DR: MELONY JOB#: [id number] CC:
--- NOTE | 2017-06-11 06:45 | Discharge Summary 2 SIG ---
DATE OF ADMISSION: 06/07/2017 DATE OF DISCHARGE: 06/09/2017 CONSULTANTS: 1. Darnell Acosta M.D. 2. Ruben Madrid M.D. 3. Julio Luke M.D. 4. Brad Guevara M.D. BRIEF HOSPITAL COURSE: The patient is a 62-year-old female, who presented to ED complaining of midsternal chest pain that started two hours prior to arrival. She has a medical history of diabetes, hypertension, and atrial fibrillation, on anticoagulation. Pain was described to be midsternal and heavy, 5/10 in intensity. On evaluation at ED, she was given aspirin and nitroglycerin en route. Workup showed negative troponin, and EKG was in atrial fibrillation. X-ray done showed no consolidation, effusion, or pneumothorax. Due to her risk factors, the patient was admitted to telemetry for acute coronary syndrome. She was followed by Dr. Acosta. Serial enzymes were monitored. Echocardiogram done showed ejection fraction 60% to 65% with RVSP of 35 consistent with borderline mild pulmonary hypertension. She complained of headache together with chest pain. Head CAT scan done showed no mass effect, edema, or acute bleed. She was given pain management consisting of Tylenol No. 3. Cardiac enzymes were negative. She underwent a stress test, results were nonischemic. She was given aspirin and Lipitor. The patient was unable to wait for final discharge order and left against medical advice. FINAL DIAGNOSES: 1. Atypical chest pain with nonischemic stress test. 2. Atrial fibrillation with rapid ventricular response. 3. Hypertension. 4. Diabetes mellitus. 5. Headache due to cephalalgia, muscle contraction type. DISPOSITION: The patient left against medical advice. Aaron Burris M.D. I have been assigned to dictate discharge summary on this account and I was not involved in the patient's management. Marilia PennyP. DR: Jamie JOB#: [id number] CC:
== END 2017-06-09 20:45 | disposition left against medical advice (07) | DRG 203 ==
LOC: EDBD 16:14 → EMR 16:50 → 2E 17:37 → EDBEDREQ 18:32
DX: R07.89 Other chest pain (principal); E11.42 Type 2 diabetes mellitus with diabetic polyneuropathy; I10 Essential (primary) hypertension; I48.91 Unspecified atrial fibrillation; Z79.01 Long term (current) use of anticoagulants; E78.5 Hyperlipidemia, unspecified; R51 Headache
CPT/HCPCS: 36415; 70450; 71010; 78452; 80053; 80061; 81001; 82550; 82553; 82962; 83735; 83880; 84100; 84443; 84484; 84550; 85025; 85610; 85730; 86140; 93005; 93017; 93306; J1815; J2405